=== PATIENT | male | born 1960 | race Caucasian/White ===

== ENCOUNTER → 2017-12-21 | Outpatient (CLI) | payer OTHER ==
[~2017-12-21] MED LIST: PROTONIX40 M2; Z.0.FLONASE16 GM NS; Z.0.HYDROCHLOROTHIA2 PO; Z.0.LOTREL 10-20 M1 PO; Z.0.PROTONIX40 MG PO; Z.0.SIMVASTATIN20 MG PO; Z.0.ULTRAM50 MG PO; Z.1.MINOCYCLINE HC10 PO; [UNRECOGNIZED DRUG - OTHER] PO
--- NOTE | 2017-12-21 09:14 | Diagnostic Imaging Report ---
PROCEDURE:L-SPINE AP AND LAT WITH FLEX AND EXT. COMPARISON: INDICATIONS:LUMBAR FUSION STATUS FINDINGS: There are 5 [id number] lumbar vertebral bodies. Postsurgical changes of L4 and L5 laminectomy with posterior transpedicular fusion and intervertebral disc spacer. Surgical hardware is intact, and alignment is unchanged. Flexion-extension radiographs show no evidence of inducible malalignment. Mild disc space narrowing at multiple levels above the fusion, most notably at L1-L2, without significant interval change. Sacroiliac joints are maintained. Unchanged probable bone island in the right iliac wing. CONCLUSION: Stable postsurgical appearance of the lumbar spine without evidence of inducible malalignment or hardware failure. Dictated by: Ervin Fine M.D. on 12/21/2017 at 9:14 Electronically approved by: Ervin Fine M.D. on 12/21/2017 at 9:14
== END ==
LOC: RAD 08:34
PROVIDERS: ATTEND Neurological Surgery
DX: M43.16 Spondylolisthesis, lumbar region (principal); Z98.1 Arthrodesis status
CPT/HCPCS: 72110

== ENCOUNTER → 2020-04-09 | Outpatient (CLI) | payer OTHER ==
[~2020-04-09] MED LIST changes: +GADOBENATE DIMEGLUMINE 1 ML IV ONE
[2020-04-09 09:20] LABS: BLOOD UREA NITROGEN 15 mg/dL (7-26); BUN/CREATININE RATIO 14 (6-25); EST GLOMERULAR FILTRATION RATE > 60 ML/MIN (60-)
--- NOTE | 2020-04-09 13:53 | Diagnostic Imaging Report ---
History: Low back pain with pain in left foot and toes. Prior lumbar surgery. Comparison studies: Lumbar spine MRI 08/12/2016. Prior lumbar spine CT of 12/29/2016 is unavailable on the PACS for comparison. Technique: Sagittal and axial T2 and precontrast T1, axial oblique proton density, coronal T2, sagittal STIR and postcontrast sagittal and axial T1 FS. Intravenous contrast: None Findings: Number of lumbar vertebral bodies: 5. Alignment: Normal lumbar lordosis with unchanged mild lumbar dextrocurvature. Soft tissues: Postsurgical changes present in the dorsal lumbosacral soft tissues. No fluid collection. Dorsal paraspinal: Moderate fatty-replaced atrophic changes noted the lumbosacral junction. Lower thoracic cord: Normal in signal and morphology. The tip of the conus is at L1-2. Cauda equina: No masses. No arachnoiditis. No abnormal enhancement. Postsurgical changes: Posterior instrumented fusion and discectomy at L4-L5 are new from the prior lumbar spine MRI. Previously present S1 transpedicular screws have been removed. Bilateral laminectomies present at L4-L5 and L5-S1. Unchanged prior discectomy and solid interbody fusion at L5-S1. Please note, cannot further evaluate hardware integrity by MRI. Vertebrae: No compression fractures, infection or neoplasm. Degenerative changes: L1-L2: Mildly degenerated disc with small symmetric disc bulge without canal or foraminal stenosis. L2-L3: Patent canal and foramina. No disc herniation. L3-L4: Mildly degenerated disc with disc degeneration which has progressed from the prior MRI. Additionally there are new endplate changes with endplate edema. Disc bulge with new 11 mm x 6 mm x 12 mm (SI x AP x TV) left central-subarticular disc extrusion, thickened ligamentum flavum and bilateral facet arthrosis with mild canal stenosis and disc herniation which compresses the left L4 subarticular nerve root. Bilateral foraminal disc osteophyte complexes and facet arthrosis result in severe left foraminal stenosis (previously mild) and mild right foraminal stenosis. L4-L5: Surgical level with prior discectomy and fatty replaced marrow endplate changes Patent canal and foramina. L5-S1: Surgical level with fused disc space. Patent canal and foramina. Incidental findings: Unchanged small nonaggressive-appearing sclerotic lesion in the right iliac bone. IMPRESSION: 1. Changes of prior L4-L5 posterior instrumented fusion, L4-L5 and L5-S1 laminectomies and discectomies and L5-S1 fusion with interval removal of previously present S1 transpedicular screws. 2. Progression of degenerative changes at L3-L4 adjacent to the level of fusion with there is progressed disc degeneration, new endplate changes with marrow edema, new disc extrusion which compresses the left L4 subarticular nerve root, mild canal stenosis and severe left foraminal stenosis. 3. No significant canal or foraminal stenosis at the remaining lumbar levels. Signed by: Dr. Ervin Guerra M.D. on 04/09/2020 1:50 PM
== END ==
LOC: MRI 08:42
PROVIDERS: ATTEND Family Medicine
DX: M54.5 Low back pain (principal); M54.10 Radiculopathy, site unspecified; G89.29 Other chronic pain; M62.81 Muscle weakness (generalized)
CPT/HCPCS: 36415; 72158; 82565; 84520

== ENCOUNTER → 2020-04-19 | Day surgery (SDC) | payer OTHER ==
[2020-04-13 17:27] LABS: BASOPHILS # (AUTO) 0.1 (0.0-0.1); BASOPHILS % 1.1 % (0.0-1.0); EOSINOPHILS # (AUTO) 0.4 (0.0-0.4); EOSINOPHILS % 3.8 % (0.0-6.0); HEMATOCRIT 51.7 % (38.2-49.6); HEMOGLOBIN 16.7 g/dL (14.0-18.0); LYMPHOCYTES # (AUTO) 1.4 (1.0-3.2); LYMPHOCYTES % 14.1 % (18.0-39.1); MEAN CORPUSCULAR HEMOGLOBIN 30.2 pg (28-32); MEAN CORPUSCULAR HGB CONC 32.3 g/dL (31-35); MEAN CORPUSCULAR VOLUME 93.5 fL (81-99); MONOCYTES # (AUTO) 0.8 (0.2-0.8); MONOCYTES % 8.5 % (4.4-11.3); NEUTROPHILS # (AUTO) 6.7 (2.1-6.9); NEUTROPHILS % 70.3 % (38.7-80.0); PLATELET COUNT 238 x10e3/uL (140-360); RED BLOOD COUNT 5.53 x10e6/uL (4.3-5.7)
[2020-04-13 17:36] LABS: INR 0.96; PROTHROMBIN TIME 13.3 seconds (11.9-14.5)
[2020-04-13 17:37] LABS: PARTIAL THROMBOPLASTIN TIME 24.2 seconds (23.8-35.5)
[2020-04-13 17:43] LABS: ANION GAP 11.1 mmol/L (8-16); BLOOD UREA NITROGEN 14 mg/dL (7-26); BUN/CREATININE RATIO 12 (6-25); CALCIUM 8.7 mg/dL (8.4-10.2); CARBON DIOXIDE 30 mmol/L (22-29); CHLORIDE 103 mmol/L (98-107); EST GLOMERULAR FILTRATION RATE > 60 ML/MIN (60-); GLUCOSE 86 mg/dL (74-118); POTASSIUM 4.1 mmol/L (3.5-5.1); SODIUM 140 mmol/L (136-145)
--- NOTE | 2020-04-13 17:46 | Diagnostic Imaging Report ---
EXAMINATION: CHEST 2 VIEWS INDICATION: Evaluation of the lungs. COMPARISON: None FINDINGS: TUBES and LINES: None. LUNGS: Normal lung volumes. Lungs are clear. No consolidations. PLEURA: No pleural effusion or pneumothorax. HEART AND MEDIASTINUM: The cardiomediastinal silhouette is unremarkable. BONES AND SOFT TISSUES: No acute osseous lesion. Soft tissues are unremarkable. UPPER ABDOMEN: No free air under the diaphragm. Cholecystectomy clips. IMPRESSION: Normal chest x-ray. Signed by: Senthil Peña MD on 04/13/2020 5:42 PM
[~2020-04-19] MED LIST changes: +ACETAMINOPHEN 1000 MG/100 ML 100 ML IV ONE; +AMBIEN10 MG PO; +ATIVAN0.5 MG PO; +BACITRACIN 50,000 UNIT VIAL ONE; +BUPIVACAINE 0.25%/EPI 30ML SDV INJ ONE; +BUPROPION XL150 MG PO; +CEFAZOLIN SOD 1 GM/NS 50ML 50 ML IV ONE; +DEXAMETHASONE SOD PHOS INJ 4 MG/ML VIAL ONE; +ETOMIDATE 2 MG/ML 10 ML INJ IV ONE; -GADOBENATE DIMEGLUMINE 1 ML IV ONE; +GLYCOPYRROLATE INJ 0.2 MG/ML VIAL ONE; +HYDROCODON-ACE1 EAC9 PO; +HYDROMORPHONE 1MG/1ML INJ ONE; +IBUPROFEN 800MG/ 200ML 200 ML IV ONE; +INDERAL XL80 MG PO; +LIDOCAINE HCL (LTA) 4 ML SOLN ONE; +LIDOCAINE HCL 2% JELLY 5 ML TUBE ONE; +LIDOCAINE HCL 2% LOCAL INJ 5 ML SDV VIAL INJ ONE; +LOTREL 10-40 M1 EACH PO; +MEPERIDINE HCL INJ 25 MG/ML VIAL ONE; +MOBIC7.5 MG PO; +NEOSTIGMINE 1 MG/ML 10ML VIAL ONE; +ONDANSETRON HCL INJ 2MG/ML 2ML 2 MG/ML VIAL ONE; +PRIMIDONE1 GM PO; +PROPOFOL IV EMULSION 10 MG/ML 20 ML VIAL ONE; +ROCURONIUM BROMIDE 10 MG/ML 5ML VIAL IV ONE; +SEVOFLURANE INHAL SOLN 250 ML PEN BTL ONE; +SOMA350 MG PO; +TESTOSTERONE200 MG PO; +THROMBIN FOR SOLN 5,000 UNIT VIAL ONE
[2020-04-19 11:40] VITALS: BP 126/82
--- NOTE | 2020-04-19 12:17 | Operative Report ---
DATE OF PROCEDURE: 04/19/2020 SURGEON: Rick Kimbrough MD PREOPERATIVE DIAGNOSIS: Left L3-L4 disk herniation with radiculopathy, above the level of previous L4-S1 fusion, M51.16. POSTOPERATIVE DIAGNOSIS: Left L3-L4 disk herniation with radiculopathy, above the level of previous L4-S1 fusion, M51.16. PROCEDURES: Left L3-L4 laminotomy, medial facetectomy, and microsurgical diskectomy, [id number]. ANESTHESIA: General. INDICATIONS: The patient is a 59-year-old man, who presents with left L3-L4 disk herniation above the level of previous L4-S1 fusion, symptomatic with an intractable L4 radiculopathy. He was taken surgery for microsurgical diskectomy without extension of his fusion. PROCEDURE IN DETAIL: After induction of general anesthesia, the patient was placed on the operating table in prone position over Benito frame. Lumbar region was prepped and draped in sterile fashion. A preoperative x-ray was obtained. A small midline incision was created overlying the upper aspect of his previous incision scar. The lumbar fascia was opened to the left of midline and subperiosteal dissection was carried out to expose the left side of the L3 lamina and the medial rim of the L3-L4 facet joint. The medial aspect of the L4 pedicle screw was also exposed. A second x-ray confirmed correct localization. The operating microscope was brought in. A high-speed drill equipped with fidle bur was used to drill the inferior aspect of the lamina of L3 and the medial rim of the L3-L4 facet joint. The ligamentum flavum was resected and the dural sac and the left L4 traversing nerve root were exposed. The nerve root was carefully mobilized medially and the herniated disk material lateral to it came into view. The epidural veins lateral to the nerve root were bipolar coagulated and divided with micro scissors. The posterior longitudinal ligament was incised with a tip of a #11 blade. The subligamentous disk herniation was retrieved and removed with a micro ball probe as a large fragment of disk. The opening into the annulus of the disk was visualized and was enlarged with a #11 blade. The loose contents of the L3-L4 disk were then evacuated with the curette and pituitary instruments. Excellent decompression was thus achieved. The wound was copiously irrigated with bacitracin solution. Meticulous hemostasis was secured. The retractor was removed. Lumbar fascia was closed with 0 Vicryl suture. Subcutaneous layer was closed with 2-0 Vicryl sutures. The skin was closed with 3-0 Monocryl sutures in subcuticular fashion. Steri-Strips and dressing were applied. The patient was awakened, extubated, and taken to Postanesthesia Care Unit in stable condition. No intraoperative complications were encountered. Estimated blood loss was 10 mL. Rick Kimbrough MD PP/BINU /[id number]
== END | disposition home or self-care (01) ==
LOC: OR 06:20
PROVIDERS: ATTEND Neurological Surgery
DX: M51.16 Intervertebral disc disorders with radiculopathy, lumbar region (principal); Z98.1 Arthrodesis status; G89.29 Other chronic pain; I10 Essential (primary) hypertension; E78.5 Hyperlipidemia, unspecified; K21.9 Gastro-esophageal reflux disease without esophagitis; F32.9 Major depressive disorder, single episode, unspecified
CPT/HCPCS: 36415; 63047; 71046; 72020; 80048; 85025; 85610; 85730; 86850; 86900; 88304; 93005; J0131; J0690; J1100; J1170; J2001 ×2; J2175; J2405; J2704; J2710; U0002

== ENCOUNTER 2020-05-25 10:00 | Outpatient (RCR) | payer OTHER ==
[~2020-05-25 10:00] MED LIST changes: -ACETAMINOPHEN 1000 MG/100 ML 100 ML IV ONE; -BACITRACIN 50,000 UNIT VIAL ONE; -BUPIVACAINE 0.25%/EPI 30ML SDV INJ ONE; -CEFAZOLIN SOD 1 GM/NS 50ML 50 ML IV ONE; -DEXAMETHASONE SOD PHOS INJ 4 MG/ML VIAL ONE; -ETOMIDATE 2 MG/ML 10 ML INJ IV ONE; -GLYCOPYRROLATE INJ 0.2 MG/ML VIAL ONE; -HYDROMORPHONE 1MG/1ML INJ ONE; -IBUPROFEN 800MG/ 200ML 200 ML IV ONE; -LIDOCAINE HCL (LTA) 4 ML SOLN ONE; -LIDOCAINE HCL 2% JELLY 5 ML TUBE ONE; -LIDOCAINE HCL 2% LOCAL INJ 5 ML SDV VIAL INJ ONE; -MEPERIDINE HCL INJ 25 MG/ML VIAL ONE; -NEOSTIGMINE 1 MG/ML 10ML VIAL ONE; -ONDANSETRON HCL INJ 2MG/ML 2ML 2 MG/ML VIAL ONE; -PROPOFOL IV EMULSION 10 MG/ML 20 ML VIAL ONE; -ROCURONIUM BROMIDE 10 MG/ML 5ML VIAL IV ONE; -SEVOFLURANE INHAL SOLN 250 ML PEN BTL ONE; -THROMBIN FOR SOLN 5,000 UNIT VIAL ONE
== END 2020-05-28 ==
LOC: PT 10:00
PROVIDERS: ATTEND Neurological Surgery
DX: M51.16 Intervertebral disc disorders with radiculopathy, lumbar region (principal); M53.86 Other specified dorsopathies, lumbar region; M62.81 Muscle weakness (generalized)

== ENCOUNTER 2020-06-01 09:51 | Outpatient (RCR) | payer OTHER | END 2020-06-27 | LOC: PT 09:51 | PROVIDERS: ATTEND Neurological Surgery | DX: M51.16 Intervertebral disc disorders with radiculopathy, lumbar region (principal) | CPT/HCPCS: 97139 ==